=== PATIENT | male | born 1945 | race African-American/Black ===

== ENCOUNTER 2020-04-11 07:47 | Outpatient (CLI) | payer MEDICARE, SELFPAY ==
--- NOTE | ~2020-04-11 | XR_ITS ---
EXAMINATION: XR_ENEMABAC_CR DATE: 04/11/2020 09:15 INDICATION: Polyps. Constipation. TECHNIQUE: A php architect radiograph was obtained. A catheter was inserted into the patient's rectum. Contra st was infused by gravity. Gas was infused by hand pump. 50 fluoroscopic spot images and 17 conventio nal radiographs were obtained. Fluoroscopy exposure time was 3.3 minutes. COMPARISON: None. FINDINGS: There is suboptimal contrast opacification contrast opacification at the cecum due to the tortuosity of the sigmoid and transverse colon. There is a small amount of residual feculent material predominan tly in the ascending colon with few smaller mobile filling defects scattered throughout the more dist al colon. No strictures or mucosal irregularities with normal haustral fold pattern. No masses, defin ite polyps or other nonmobile filling defects appreciated. IMPRESSION: 1. No strictures, mass or definite polyps identified however evaluation is mildly limited by small am ount of residual small bowel feculent material predominantly in the ascending colon where there is al so suboptimal contrast coating of the mucosa due to tortuosity of the sigmoid and transverse colon. Reviewed, dictated and finalized at location A. IMPRESSION: 1. No strictures, mass or definite polyps identified however evaluation is mild ly limited by small amount of residual small bowel feculent material predominan tly in the ascending colon where there is also suboptimal contrast coating of t he mucosa due to tortuosity of the sigmoid and transverse colon.
== END 2020-04-11 07:48 | disposition home or self-care (01) ==
PROVIDERS: PCP Internal Medicine; Visit Provider Internal Medicine Gastroenterology
DX: K59.00 Constipation, unspecified (principal)
CPT/HCPCS: 74280

== ENCOUNTER → 2022-08-12 10:33 | Outpatient (CLI) | payer MEDICARE, SELFPAY ==
--- NOTE | ~2022-08-12 | US_ITS ---
EXAMINATION: US scrotum doppler DATE: 08/12/2022 11:16 INDICATION: Scrotal cyst. TECHNIQUE: Grayscale and Doppler ultrasound images of the testes were obtained. COMPARISON: Ultrasound 06/11/2019 FINDINGS: The right testis measures 4.3 x 1.9 x 3.5 cm. The left testis measures 4.3 x 2.1 x 4.4 cm. There is a 5 mm cyst in left testis. There is normal vascular flow to both testes. The right epididym is is normal with normal vascular flow. The left epididymis is normal with normal vascular flow. Ther e is a 0.7 cm cyst lateral to right testis. There is a 1.2 cm cyst superior to left testis with inter leigha improvement from 3.5 cm on 06/11/19. There is no varicocele or hydrocele. IMPRESSION: 1. Cysts in the scrotum, likely benign. Reviewed, dictated and finalized at location A. 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
== END ==
PROVIDERS: PCP Urology; Visit Provider Urology
DX: L72.9 Follicular cyst of the skin and subcutaneous tissue, unspecified (principal); N50.89 Other specified disorders of the male genital organs
CPT/HCPCS: 76870; 93976

== ENCOUNTER 2024-08-08 10:19 | Outpatient (CLI) | payer MEDICARE, SELFPAY ==
--- NOTE | 2024-08-08 11:00 | NEURO_ITS ---
Impression: # Complains of numbness of lower extremities. # Right posterior tibial polyphasic responses proximally indictive of previous damage. # Otherwise study is within normal limits. # Normal needle/EMG exam. Nerve Conduction Studies Anti Sensory Summary Table Stim Site NR Peak (ms) P-T Amp (?V) Site1 Site2 Delta-P (ms) Dist (cm) Bora (m/s) Left Sup Fibular Anti Sensory (Ant Lat Mall) 14 cm 3.8 19.5 14 cm Ant Lat Mall 3.8 16.0 42 Right Sup Fibular Anti Sensory (Ant Lat Mall) 14 cm 3.4 4.7 14 cm Ant Lat Mall 3.4 16.0 47 Left Sural Anti Sensory (Lat Mall) Calf 3.3 11.4 Calf Lat Mall 3.3 16.0 48 Right Sural Anti Sensory (Lat Mall) Calf 3.4 4.1 Calf Lat Mall 3.4 16.0 47 Motor Summary Table Stim Site NR Onset (ms) O-P Amp (mV) Site1 Site2 Delta-0 (ms) Dist (cm) Bora (m/s) Left Peroneal Motor (Vastus Med) Ankle 3.8 2.7 Popit Ankle 9.1 40.0 44 Popit 12.9 4.1 Right Peroneal Motor (Vastus Med) Ankle 3.6 3.8 Popit Ankle 8.7 41.0 47 Popit 12.3 2.8 Left Tibial Motor (Abd Garcia Brev) Ankle 3.8 0.9 Knee Ankle 8.3 40.0 48 Knee 12.1 0.8 Right Tibial Motor (Abd Garcia Brev) Ankle 3.8 1.4 Knee Ankle 8.6 40.0 47 Knee 12.4 1.6 F Wave Studies NR F-Lat (ms) L-R F-Lat (ms) Left Peroneal (Mrkrs) (EDB) 50.74 1.06 Right Peroneal (Mrkrs) (EDB) 49.69 1.06 Left Tibial (Mrkrs) (Abd Hallucis) 50.53 0.23 Right Tibial (Mrkrs) (Abd Hallucis) 50.29 0.23 EMG Side Muscle Nerve Root Ins Act Fibs Amp Dur Recrt Comment Right AntTibialis Dp Br Fibular L4-5 Nml Nml Nml Nml Nml Right Gastroc Tibial S1-2 Nml Nml Nml Nml Nml Right Fibularis Long Sup Br Fibular L5-S1 Nml Nml Nml Nml Nml Right Flex Dig Long Tibial L5-S2 Nml Nml Nml Nml Nml Right Ext Dig Brev Dp Br Fibular L5, S1 Nml Nml Nml Nml Nml Right QuadratusFem QuadFemoris L4-5, S1 Nml Nml Nml Nml Nml Left AntTibialis Dp Br Fibular L4-5 Nml Nml Nml Nml Nml Left Gastroc Tibial S1-2 Nml Nml Nml Nml Nml Left Fibularis Long Sup Br Fibular L5-S1 Nml Nml Nml Nml Nml Left Flex Dig Long Tibial L5-S2 Nml Nml Nml Nml Nml Left Ext Dig Brev Dp Br Fibular L5, S1 Nml Nml Nml Nml Nml Left QuadratusFem QuadFemoris L4-5, S1 Nml Nml Nml Nml Nml MTDD
== END 2024-08-08 10:20 | disposition home or self-care (01) ==
LOC: ANHNEURO 10:23
PROVIDERS: PCP Internal Medicine; Visit Provider Internal Medicine
DX: R20.0 Anesthesia of skin (principal); R20.2 Paresthesia of skin
CPT/HCPCS: 95886; 95910

== ENCOUNTER 2025-02-12 09:20 | Outpatient (CLI) | payer MEDICARE, SELFPAY ==
--- OUTSIDE RECORDS SUMMARY | 2025-02-12 09:35 | XMS_ITS | Clinical Summary ---
Author Organization [facility] [address] Address [address] [place] [address] Care Team Providers Care Mark Up Designer Name Role Phone Lawson Zhu DO Primary Care Provider [phone] Allergies Active Allergy Reactions Criticality Noted Date Comments Moxifloxacin Anaphylaxis High 07/11/2020 Dorzolamide-Timolol Hallucinations Medium 07/11/2020 Pitavastatin Calcium Anxiety Low 07/11/2020 Medications atorvastatin (LIPITOR) 40 mg tablet Take 1 tablet (40 mg total) by mouth daily Active tamsulosin (FLOMAX) 0.4 mg extended release capsule 1 capsule (0.4 mg total) Active aspirin 325 mg 81 mg Activ e azelastine (ASTELIN) 137 mcg (0.1 %) nasal spray Administer 1 spray into each nostril 2 (two) times a day Use in each nostril as directed 30 mL 3 0 Active Additional Information Patient not taking.Reported on 12/11/2024 latanoprost (XALATAN) 0.005 % ophthalmic solution INSTILL 1 DROP INTO EACH EYE AT BEDTIME DIRECTED 4 Active timolol (TIMOPTIC) 0.5 % ophthalmic solution INSTILL 1 DROP INTO EACH EYE ONCE DAILY 5 Active Active Problems Problem Noted Date Diagnosed Date Benign prostatic hyperplasia 12/11/2024 Constipation 12/11/2024 Elevated blood-pressure read ing without diagnosis of hypertension 12/11/2024 Glaucoma 12/11/2024 Hearing loss 12/11/2024 History of colonic polyps 12/11/2024 Overview (12/11/2024): Mar 17, 2023 Entered By: CAMACHO,KRISTINA R Comment: CSCOPE due 2024. Will obtain repeat in the private sector Hyperlipidemia 12/11/2024 Sensorineural hearing loss, bilateral 12/11/2024 Sinusitis 07/11/2020 Chronic rhinitis 07/11/2020 Encounters Date Type Department Care Team Description 12/12/2024 Results Follow-Up [facility] at [address] [address] Sana Ramsey NP 12/11/2024 3:16 PM CDT - 12/11/2024 11:59 PM CDT Hospital Encounter [address] [address] Paresthesia Discharge Disposition: Discharge to home or self care 12/11/2024 2:15 PM CDT Office Visit [facility] at [address] [address] Sana Ramsey, ROQUE Paresthesia (Primary Dx) from Last 3 Months Surgical History Surgery Date Site/Laterality Comments NOSE SURGERY 10/03/1978 - 10/02/1979 HERNIA REPAIR COLONOSCOPY 10/03/2019 - 10/02/2020 Medical History Medical History Date Comments Allergies Cataracts, bilateral Borderline high serum cholesterol Social History Tobacco Use Types Packs/Day Years Used Date Smoking Tobacco: Unknown Sex and Gender Information Value Date Recorded Sex Assigned at Not on file Legal Sex Male 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 Gender Identity Not on file Sexual Orientation Not on file Obstetrics History Last Filed Vital Signs Vital Sign Reading Time Taken Comments Blood Pressure 119/71 12/11/2024 2:14 PM CDT Pulse 75 12/11/2024 2:14 PM CDT Temperature 36.9 C (98.4 F) 12/11/2024 2:14 PM CDT Respiratory Rate 18 12/11/2024 2:14 PM CDT Oxygen Saturation 96% 12/11/2024 2:14 PM CDT Inhaled Oxygen Concentration - - Weight 63.5 kg (140 lb) 12/11/2024 2:14 PM CDT Height 165.1 cm (5' 5 ) 12/11/2024 2:14 PM CDT Body Mass Index 23.3 12/11/2024 2:14 PM CDT Plan of Treatment Health Maintenance Due Date Last Done Comments Depression Screening 1945 Fall Risk Assessment 1945 Hepatitis C Screening 1945 Hepatitis B Screening 1963 Well Visit 65+ 2010 Pneumococcal vaccine 65+ (2 of 2 - PPSV23) 12/31/2016 01/01/2016, 09/01/2012 Influenza Vaccine (Season Ended) 2025 07/03/2022, 06/09/2020, 07/03/2017, Additional history exists DTaP/Tdap/Td Vaccine (3 - Td or Tdap) 04/23/2031 04/23/2021, 08/09/2008 Zoster Vaccine Completed 07/02/2021, 04/03, 11/07/2012, Additional history exists Procedures Procedure Name Priority Date/Time Associated Diagnosis Comments INFLUENZA A/B, RSV, AND COVID-19 PCR Routine 12/11/2024 3:16 PM CDT Paresthesia from Last 3 Months Results * Influenza A/B, RSV, and COVID-19 PCR Nasopharyngeal (12/11/2024 3:16 PM CDT) COVID-19 RNA Negative Negative Influenza A RNA Negative Negative [facility] Influenza B RNA Negative Negative [facility] RSV RNA Negative Negative [facility] Comment: Interpretive data: Testing performed by [facility]. This test is performed using the [employer] Xpert Xpress CoV-2/Flu/RSV plus assay. This is a multiplex, real-time reverse transcriptase PCR assay intended for the qualitative detection of nucleic acid from SARS-CoV-2, influenza A, influenza B, and respiratory syncytial virus. This assay has been cleared by the [place] Food and Drug administration. The performance characteristics have been verified by the [facility]. Results must be considered in the clinical context, and a negative result does not rule out infection. Interpretive Data last revised 2023 Nasopharyngeal 12/11/2024 3: 16 PM CDT 12/11/2024 9:16 PM CDT Narrative [facility] - 12/11/2024 10:08 PM CDT Is the Patient experiencing symptoms consistent with COVID?->Yes Reason for testing?->Symptomatic Is the patient experiencing any symptoms consistent with COVID (eg. Fever, cough, shortness of breath)?->Yes Sana Ramsey NP LAB MICROBIOLOGY - GENERAL ORDERABLES Final Result [facility] [address] Department [place] [address] from Last 3 Months Insurance [facility]ICARE [facility] MEDICARE Address: [address] [address] [place] [address] [facility] MEDICARE [facility] MEDICARE Care Teams Mark Up Designer Relationship Specialty Start Date End Date Lawson Zhu DO PCP - General Internal Medicine 07/11/20
--- OUTSIDE RECORDS SUMMARY | 2025-02-12 09:35 | XMS_ITS | Referral Summary ---
Author Organization [facility] Address [address] [place] [address] Care Team Providers Care Concert Singer Name Role Phone Lawson Zhu DO Primary Care Provider [phone]- [phone] Encounters Date Type Department Care Team Description 12/12/2024 Results Follow-Up [facility] at [address] [address] Sana Ramsey NP 12/11/2024 3:16 PM CDT - 12/11/2024 11:59 PM CDT Hospital Encounter [address] [place] [phone] Paresthesia Discharge Disposition: Discharge to home or self care 12/11/2024 2:15 PM CDT Office Visit [facility] Care at [address] [address] Sana Ramsey, ROQEU Paresthesia (Primary Dx) from Last 3 Months Allergies Active Allergy Reactions Criticality Noted Date [...] Overview (12/11/2024): Mar 17, 2023 Entered By: KRISTINA CAMACHO Comment: CSCOPE due 2024. 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 Gender Identity Not on file Sexual Orientation Not on file Last Filed Vital Signs Vital Sign Reading [...] 12/11/2024 2:14 PM CDT Plan of Treatment Not on file Procedures Procedure Name Priority Date/Time Associated Diagnosis Comments INFLUENZA A/B, RSV, AND COVID-19 PCR Routine 12/11/2024 3:16 PM CDT Paresthesia from Last 3 Months Results * Influenza A/B, RSV, and COVID-19 PCR Nasopharyngeal (12/11/2024 3:16 PM CDT) COVID-19 RNA Negative Negative Influenza A RNA Negative Negative [facility] Influenza B RNA Negative Negative [facility] RSV RNA Negative Negative [facility] Comment: Interpretive data: Testing performed by Laboratory. This test is performed using the meevl Xpert Xpress CoV-2/Flu/RSV plus assay. This is a multiplex, real-time reverse transcriptase PCR assay intended for the qualitative detection of nucleic acid from SARS-CoV-2, influenza A, influenza B, and respiratory syncytial virus. This assay has been cleared by the [place] Food and Drug administration. The performance characteristics have been verified by the Laboratory. Results must be considered in the clinical context, and a negative result does not rule out infection. Interpretive Data last revised 2023 Nasopharyngeal 12/11/2024 3: 16 PM CDT 12/11/2024 9:16 PM CDT Narrative [facility] - 12/11/2024 10:08 PM CDT Is the Patient experiencing symptoms consistent with COVID?->Yes Reason for testing?->Symptomatic Is the patient experiencing any symptoms consistent with COVID (eg. Fever, cough, shortness of breath)?->Yes Sana Ramsey NP LAB MICROBIOLOGY - GENERAL ORDERABLES Final Result [facility] [id number] Department of Laboratories [place], [place] [phone] from Last 3 Months Insurance [facility] MEDICARE ADVANTAGE AET MEDICARE [facility] MEDICARE Care Teams Concert Singer Relationship Specialty Start Date End Date Lawson Zhu DO PCP - General Internal Medicine 07/11/20
--- OUTSIDE RECORDS SUMMARY | 2025-02-12 09:35 | XMS_ITS ---
Author Organization [facility] Address [address] [place], [place] [address] Care Team Providers Care Auto Research Engineer Name Role Phone JERICA BECERRIL Unavailable [phone] Lawson Zhu Unavailable REASON FOR VISIT MEDICAL RECORDS Encounters Encounter Location Date Provider Diagnosis [facility] [address] [place], [place] [id number] 12/10/2024 JERICA BECERRIL Plan Of Treatment No Information Progress Notes * OMER BETODOB: 5 (79 yo M)Acc No.[id number]:12/10/2024 Patient: BETO HENDERSON :1945 A ge:79 Y S ex:Male Address:[address], [place] [address] * true * Date: Generated for Jaquani ng/Fapareshg/eTransmitting on: 0 02/12/2025 09:34 AM CDT
--- OUTSIDE RECORDS SUMMARY | 2025-02-12 09:35 | XMS_ITS | Continuity of Care Document ---
Author Organization [facility] Address [address] U[address] [place] [address] Phone Care Team Providers Care Ammunition Assembly I Laborer Name Role Phone Jonathan Carrera Unavailable Unavailable [...] Diagnoses Date Provider Providers Copied on Encounter [facility], [address], [place], [place], [address], [place] tel:[phone] [facility] No Information Oct-2 0-201 0 Doisy Edward. [address] [facility] , [address], [place], [place], [facility], [place]. tel:[phone] Referring Provider: Ricky Nation, [address] [place], [address]. tel:[phone] [facility], [address], [place], [place], [address], [place] tel:[phone] [facility] No Information Oct-1 2-201 0 Doisy Edward. [address] [facility] , [address], [place], [facility], [place]. tel:[phone] Referring Provider: Ricky Nation, [address] [place], [place], [facility]. tel:[phone] Office/outpat ient Visit, [facility], [address], [place], [place], [address], [place] tel:[phone] [facility] No Information Oct-0 6-201 0 Doisy Edward. [address] [facility] , [address], [place], [address], [place]. tel:[phone] Referring Provider: Ricky Nation, [address] [place], [address]. tel:[phone] [facility], [address], [place], [place], [address], [place] tel:[phone] [facility] No Information Sep-2 1-201 0 Doisy Edward. [address] [facility] , [address], [place], [facility], [place]. tel:[phone] Referring Provider: Ricky Nation, [address] [place], [address]. tel:[phone] [facility], [address], [place], [place], [address], [place] tel:[phone] [facility] No Information Sep-1 0-201 0 Deandre Edradha. [address] , [address], [place], [facility], . tel:[phone] Referring Provider: Jonathan Candelaria, [address], [place], [facility]. tel:[phone] Office/outpat ient Visit, [facility], [address], [place], [place], [address], [place] tel:[phone] [place] [address] No Information Jan-2 9-201 0 Deandre Castillo. [address] [facility] [address], [address], [place], [facility], [place]. tel:[phone] Referring Provider: Ricky Nation, [address] [place], [address]. tel:[phone] Office/outpat ient Visit, [facility], [address], [place], [place], [address], [place] tel:[phone] [facility] No Information Dec-1 0-200 9 Deandre Castillo. [facility] [address], [address], [place], [facility], [place]. tel:[phone] Referring Provider: Jonathan Candelaria, [address], [place], [facility]. tel:[phone] [facility], [address], [place], [place], [address], [place] tel:[phone] [facility] No Information Apr-3 1-200 9 Deandre Edradha. [address], [address], [place], [facility], [place]. tel:[phone] Referring Provider: Jonathan Candelaria, [address], [place], [address]. tel:[phone] Office/outpat ient Visit, [facility], [address], [place], [place], [address], [place] tel:[phone] [facility] No Information 9 Deandre Castillo. [address], [place], [address], [place]. tel:[phone] Referring Provider: Ricky Nation, [address] [place], [address]. tel:[phone] Office/outpat ient Visit, [facility], [address], [place], [place], [address], [place] tel:[phone] [facility] No Information 200 8 Deandre Castillo. [address] , [address], [place], [address], [place]. tel:[phone] Referring Provider: Rciky Nation, [address] [place], [address]. tel:[phone] Office/outpat ient Visit, [facility], [address], [place], [place], [address], [place] tel:[phone] [facility] No Information 1200 8 Deandre Castillo. [address] , [address], [place], [address], [place]. tel:[phone] Referring Provider: Ricky Nation, [address] [place], [address]. tel:[phone] [facility], [address], [place], [place], [address], [place] tel:[phone] [facility] No Information 8 Deandre Edradha. [address] , [address], [place] [facility], [place]. tel:[phone] Referring Provider: Jonathan Candelaria, [address], [place] [facility]. tel:[phone] Office/outpat ient Visit, [facility], [address] [place] [address] [address], [place], [place], [address], tel:[phone] [facility] No Information 200 8 Deandre Castillo. [address] [facility] , [address], [place] [facility], [place]. tel:[phone] Referring Provider: Ricky Nation, [address] [place], [address]. tel:[phone] [facility], [address] [place] [address] [address], [place], [place], [address], [place] tel:[phone] [facility] No Information 200 7 Deandre Castillo. [address] [facility] , [address], [place] [facility], [place]. tel:[phone] Referring Provider: Ricky Nation, [address] [place], [address]. tel:[phone] [facility], [address] [place] [address] [address], [place], [place], [address], [place] tel:[phone] [facility] No Information 8[address] Deandre Castillo. [address] [facility] , [address], [place] [facility], [place]. tel:[phone] Referring Provider: Ricky Nation, [address] [place], [address]. tel:[phone] [facility], [address] [place] [address] [address], [place], [place], [address], tel:[phone] [facility] No Information 200 7 Doisy Edward. [address] [facility] , [address], [place] [facility], . tel:[phone] Referring Provider: Ricky Nation, [address] [place], [address]. tel:[phone] [facility], [address] [place] [address] [address], [place], [place], [address], [place] tel:[phone] [facility] No Information [address] Doisy Edward. [address] [facility] , [address], [place], [facility], [place]. tel:[phone] Referring Provider: Paulo Harrison, [address] [place] [address], [address]. tel:[phone] [facility], [address] [place] [address] [address], [place], [place], [address], tel:[phone] [facility] No Information 7 Doisy Edward. [address] [facility] , [address], [place] [facility], [place]. tel:[phone] Referring Provider: Paulo Harrison, [address] [place], [address]. tel:[phone] [facility], [address], [place], [place], [address], [place] tel:[phone] [facility] No Information 7 Doisy Edward. [address] [facility] , [address], [place], [facility], [place]. tel:[phone] Referring Provider: Paulo Harrison, [address] [place], [address]. tel:[phone] [facility], [address], [place], [place], [address], [place] tel:[phone] [facility] No Information 2-200 7 Nathalieca Castillo. [address] , [address], [place], [address], [place]. tel:[phone] Referring Provider: Paulo Harrison, [address] [place] [address], [address]. tel:[phone] Family History Family Member Type Diagnosis Age At Onset No Information Payers Payer name Insurance type Covered republican ID Authoriza tion(s) No Information Social History [...]
--- OUTSIDE RECORDS SUMMARY | 2025-02-12 09:35 | XMS_ITS | Patient Health Record ---
Author Organization [facility] Address [address] [place], [place] [address] Care Team Providers Care Rescue Worker Name Role Phone JERICA BECERRIL Unavailable [phone] Lawson Zhu Unavailable Unavailable Allergies Allergen (clinical drug ingredient) Drug/Non Drug Allergy documented on EMR Reaction Allergy Type Onset Date Status diphenhydramine Antihistamine Unknown Drug Allergy Active moxifloxacin Avelox Unknown Drug Allergy Acti ve dorzolamide Dorzolamide Unknown Drug Allergy Act lu Latex Latex Unknown Allergy Active Reason For Referral No Information Medications Medication SIG (Take, Route, Fr equency, Duration) Notes Start Date End Date Status Aspirin Active Atorvastatin Calcium Active Tamsulosin HCl Activ e Latanoprost Active Vital Signs Height-cm 165.1 cm 05/24/2024 7.5 Weight-kg 65.77 kg 05/24/2024 7.5 Height 65 in 05/24/2024 7.5 Weight 145 lbs 05/24/2024 7.5 BMI 24.13 kg/m2 05/24/2024 7.5 Encounters Encounter Location Date Provider Diagnosis [facility] [address] [place], [place] [id number] 05/24/2024 JERICA BECERRIL Metatarsalgia of right foot M77.41 ; Other hereditary and idiopathic neuropathies G60.8 ; Flat foot [pes planus] (acquired), right foot M21.41 ; Flat foot [pes planus] (acquired), left foot M21.42 and Pain in right foot M79.671 [facility] [address] [email or web address] [address] [place], [place] [id number] 05/28/2024 JERICA BECERRIL [facility] [address] [facility] [[email or web address] [address] [place], [place] [id number] 08/14/2024 JERICA BECERRIL [facility] [place] [address] [facility] [[email or web address] [address] [place], [place] [id number] 12/10/2024 JERICA BECERRIL Assessments Encounter Date Diagnosis (ICD Code) Assessment Notes Treatment Notes Treatment Clinical Notes Section Notes 05/24/2024 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 We will wait to see if his symproms worsen. Orthotic Powerstep: Powerstep OTC orthotics were dispensed. Plan Of Treatment No Information Insurance Providers Payer Name Payer Address Payer Phone Subscriber Number Group Number Insured Name Patient Relationship to Insured Coverage Start Date Coverage End Date [employer] [address] [place] [phone] [id number] BETO TELLO Self - patient is the insured Medical (General) History Medical History History ICD Code Leg/Feet cramps Gout low blood pressure hypertension restless leg syndrome Surgical History Surgery Date(Month/Year) Hernia Cataract extration
--- OUTSIDE RECORDS SUMMARY | 2025-02-12 09:35 | XMS_ITS ---
Author Organization [facility] Address [address] [place], [place] [address] Care Team Providers Care Stone Driller Helper Name Role Phone JERICA BECERRIL Unavailable [phone] Lawson Zhu Unavailable Unavailable Encounters Encounter Location Date Provider Diagnosis [facility] [address] [place], [place] [id number] 08/14/2024 JERICA BECERRIL Plan Of Treatment No Information Progress Notes * BETO TELLODOB: 5 (79 yo M)Acc No.[id number]:08/14/2024 Patient: BETO HENDERSON :1945 A ge:79 Y S ex:Male Address:[facility], [place] [address] * true * Date: Generated for Jaquani maris/Gela/eTransmitting on: 0 02/12/2025 09:34 AM CDT
--- OUTSIDE RECORDS SUMMARY | 2025-02-12 09:35 | XMS_ITS | Encounter Summary ---
Author Organization [facility] Address [address] [place] [address] Care Team Providers Care Senior Mechanical Design Engineer Name Role Phone Lawson Zhu DO Primary Care Provider [phone]- [phone] Encounter Details Date Type Department Care Team (Late st Contact Info) Description 12/12/2024 Results Follow-Up [facility] Convenient Care at [address] [place] [place] [address] Sana Ramsey, FABRIC AWNING REPAIRER [address] [place] [address] [address] [place] [address] Social History Tobacco Use Types Packs/Day Years Used Date Smoking Tobacco: Unknown Sex and Gender Information Value Date Recorded Sex Assigned at Not on file Legal Sex Male 8:10 PM MEDICAL COST CONSULTANT Gender Identity Not on file Sexual Orientation Not on file documented as of this encounter Miscellaneous Notes * Result Encounter Note - Mary Cherry LPN - 12/19/2024 4:31 PM CDT Notified pt of their results and follow up instructions. Pt verbalized understanding. * Result Encounter Note - Mary Cherry LPN - 12/12/2024 2:06 PM CDT Notified pt of their results and follow up instructions. Pt verbalized understanding. documented in this encounter Plan of Treatment Not on file documented as of this encounter Visit Diagnoses Not on filedocumented in this encounter Care Teams Senior Mechanical Design Engineer Relationship Specialty Start Date End Date Lawson Zhu DO PCP - General Internal Medicine 07/11/20 documented as of this encounter
--- OUTSIDE RECORDS SUMMARY | 2025-02-12 09:35 | XMS_ITS ---
Author Organization [facility] Address [address] [place], [place] [id number] Care Team Providers Care Blasting Contract Man Name Role Phone JERICA BECERRIL Unavailable [phone] Lawson Zhu Unavailable Unavailable Encounters Encounter Location Date Provider Diagnosis [facility] [address] [place], [place] [id number] 05/28/2024 JERICA BECERRIL Plan Of Treatment No Information Progress Notes * BETO TELLODOB: 5 (79 yo M)Acc No.[id number]:05/28/2024 Patient: BETO HENDERSON :1945 A ge:79 Y S ex:Male Address:[facility], [place] [address] * true * Date: Generated for Jaquani maris/Gela/eTransmitting on: 0 02/12/2025 09:34 AM CDT
--- NOTE | 2025-02-12 09:41 | ECG_ITS ---
Test Date: 2025-02-12 09:53:25 Measurements Intervals [place] Rate: 67 P: 61 RI: 150 QRS: 52 QRSD: 90 T: 63 QT: 400 QTc: 423 Interpretive Statements SINUS RHYTHM WITH SINUS ARRHYTHMIA NONSPECIFIC T-WAVE ABNORMALITY WARNING: DATA QUALITY MAY AFFECT INTERPRETATION No previous ECG available for comparison Electronically Signed On 02-12-2025 15:00:53 CDT by Aminata Cunningham M.D.
== END 2025-02-12 09:21 | disposition home or self-care (01) ==
LOC: ANHSURGERY 09:23
PROVIDERS: PCP Internal Medicine; Visit Provider Surgery
DX: Z01.818 Encounter for other preprocedural examination (principal); I49.8 Other specified cardiac arrhythmias; R94.39 Abnormal result of other cardiovascular function study; E78.5 Hyperlipidemia, unspecified; K40.90 Unilateral inguinal hernia, without obstruction or gangrene, not specified as recurrent; K42.9 Umbilical hernia without obstruction or gangrene
CPT/HCPCS: 36415; 86850; 86900; 86901; 93005

== ENCOUNTER 2025-02-18 01:02 | Day surgery (SDC) | payer MEDICARE, SELFPAY ==
[2025-02-06 09:56] VITALS: BMI 23.1
--- NOTE | 2025-02-06 10:14 | PC.NURSE ---
Report to the Outpatient Waiting Room, entrance under the green pavilion located off [facility], at time ___8:30am____ on date ___02/18/25____. Planned Procedure Time: ___10:30am . Time changes happen often and if your time is changed the preop area will call you the afternoon before. - You and your visitor will be asked to self-screen and do not enter if you have any COVID symptoms. Please call surgeon if you need to reschedule. - A mask is optional within the hospital at this time. Patients may have clear liquids (water, carbonated beverages, clear teas, apple juice) until 3 hours prior to surgery (7:30AM) with a maximum of 20 ounces. - No food from midnight until time of surgery and no smoking, or chewing tobacco (or any form of nicotine). No chewing gum, candy or mints. Take only the following medications with a SIP of water on the morning of surgery: NONE DO NOT STOP ANY OF YOUR OTHER PRESCRIPTION MEDICATIONS PRIOR TO SURGERY EXCEPT THE FOLLOWING Hold all vitamins and supplements for 3 days per anesthesiologist- LAST DOSE 02/14/25. Please no make-up, nail turkish, hairspray, perfume, deodorant, or body powder the day of surgery. No jewelry (including any body piercings) or valuables the day of surgery, leave them at home. Please take a shower or bath the night before, or the morning of, surgery with an antibacterial soap. Wear comfortable, loose fitting clothing. - Jewelry must be removed prior to entering the operating room. Rings and piercings that are not removed may be cut off. - The hospital will not accept responsibility for valuables. - Please leave all valuables, including medications, at home the day of surgery. If you are going home after surgery, a licensed hazmat cdl a driver must drive you home. - NO public transportation without another adult if you receive anesthesia. - We recommend that an adult stay with you for 24 hours following discharge. - We also recommend that you do not drive, make important decision, drink alcoholic beverages, or take any drugs that were not prescribed by your health care provider for at least 24 hours after your discharge time. Follow any additional instructions given to you from your surgeon. Telephone instructions given to ___PATIENT and asked if any additional questions and then verbalized understanding. Patient advised to call surgeon office or pre surgery nurse liaison [phone] if any additional questions.
--- NOTE | 2025-02-15 15:32 | WPDANESEPPF ---
Anes - Initial Pre Proc Eval Procedure: Operation Date: 02/18/25 10:30 Proposed Procedures p Robotic Assisted Laparoscopic Right Inguinal Hernia Repair with Mesh, - Paulino Moore MD s Open Umbilical Hernia Repair - Paulino Moore MD Date/Time: 02/15/25 15:32 Surgeon: Paulino Moore MD Pre Op Diagnosis: reducible right inguinal and umbilical hernia Patient Data Age: 79 Gender: M Height: 1.68 m Weight: 65 kg Allergies Allergy/AdvReac Type Severity Reaction Status Date / Time moxifloxacin (From Avelox) AdvReac Severe REFUSES Verified 02/06/25 09:49 FOR FEAR OF Anaphylaxis/NEVER TAKEN dorzolamide AdvReac Mild HALLUCINATI Verified 02/06/25 09:49 ONS pitavastatin AdvReac Mild WALKING Verified 02/06/25 09:49 IN SLOW MOTION Home Medications Medication Instructions Recorded Confirmed Type aspirin 81 mg tablet,delayed 81 mg PO DAILY 10/17/19 02/06/25 History release (Adult Aspirin Regimen) latanoprost 0.005 % eye drops 1 drop ophthalmic (eye) DAILY 10/17/19 02/06/25 History polyethylene glycol 3350 17 17 gm PO DAILY 10/17/19 02/06/25 History gram/dose oral powder (Miralax) vit C 250 mg-vit E 90 mg-zinc 40 1 tablet PO BID 10/17/19 02/06/25 History mg-copper 1 nc-eclnro-lwczru capsule (PreserVision AREDS-2) multivitamin-ferrous 1 tablet PO DAILY 04/19/24 02/06/25 History fumarate-folic acid 18 mg-400 mcg tablet (Centrum) atorvastatin 40 mg tablet See Rx Instructions .Route 10/15/24 02/06/25 Rx .COMPLEX #90 tabs tamsulosin 0.4 mg capsule See Rx Instructions .Route 12/10/24 02/06/25 Rx .COMPLEX #90 caps propylene glycol 0.6 % eye drops 1 drp EACH EYE Q6-8H PRN dry eye(s) 02/05/25 02/06/25 History (Systane Balance) Patient hx anesthesia problems: none Family hx anesthesia problems: none Results Review: All pre-operative results and documents have been reviewed as part of the pre-operative evaluation. [facility] Past Medical History Medical History (Updated 02/05/25 @ 09:21 by Jodi Hall) Allergies Hyperlipidemia, unspecified History of fracture Mumps BPH (benign prostatic hyperplasia) Cataract Hyperlipidemia due to dietary fat intake Surgical History Surgical History (Updated 02/05/25 @ 08:48 by Ruth Peña MA) Hx of eye surgery 2022 H/O rhinoplasty 1978 H/O cataract removal with insertion of prosthetic lens 2007 H/O hernia repair 2016 Family History Family History (Updated 02/05/25 @ 08:49 by Ruth Peña MA) Mother Family history of eczema, Onset Age: 105 Family history of allergic disorder, Onset Age: 105 Family history of Alzheimer's disease, Onset Age: 105 Asthma Hypertension Father Hay fever Aneurysm Sibling Asthma Other Family history of kidney disease Social History Social History (Updated 02/05/25 @ 08:50 by Ruth Peña MA) Smoking status: Never smoker Smoking end date: 10/03/74 Alcohol intake: never Substance use: never Substance use type: does not use Do You Feel Safe in your Home?: Yes Lack of Transportation: No Lack of Food: Never True Current Housing: I Have Housing Concerned About Future Housing: No Difficulty Paying Gas/Electric Bills: No Difficulty Paying for Meds: No Currently Unemployed: Decline to Answer Education: High School Diploma/GED Difficulty w/ Childcare or Family Care: No Living arrangements: with family Additional living arrangements comments: Spiritual care concerns: No Agree to blood products: Yes Anes - Eval Final PreProcedure Day of Procedure 02/15/25 15:32 Patient weight: normal Heart: regular rate and rhythm Lungs: clear to auscultation Airway: Mallampati scale class II Neurological: alert and oriented Last oral intake: >/= 8 hours ASA classification: III Emergent: no Anesthetic plan: proceed Anesthesia type and monitoring: general ETT and standard monitoring Results Review: All pre-operative results and documents have been reviewed as part of the pre-operative evaluation. Informed Consent: The patient's anesthetic plan and its attendant risks and benefits were discussed with the patient/family/POA. Questions were solicited and answers provided to the satisfaction of the patient/family/POA.
[2025-02-18] VITALS (10 sets, daily range): BP systolic 117–156; BP diastolic 56–70; PULSE 64–94; RESP 9–18; TEMP 35.9–37; O2SAT 93–99
--- OUTSIDE RECORDS SUMMARY | 2025-02-18 01:06 | XMS_ITS | Patient Health Record ---
Author Organization [facility] Address [address] [place], [place] [id number] Care Team Providers Care Freight Hustler Name Role Phone JERICA BECERRIL Unavailable [phone] Lawson Zhu Unavailable Unavailable Allergies Allergen (clinical [...] Location Date Provider Diagnosis [facility] [address] [place], [place] [id number] 05/24/2024 JERICA BECERRIL Metatarsalgia of right foot M77.41 ; Other hereditary and idiopathic neuropathies G60.8 ; Flat foot [pes planus] (acquired), right foot M21.41 ; Flat foot [pes planus] (acquired), left foot M21.42 and Pain in right foot M79.671 [facility] [address] [facility] [address] [place], [place] [id number] 05/28/2024 JERICA BECERRIL [facility] [address] [facility] [address] [place], [place] [id number] 08/14/2024 JERICA BECERRIL [facility] [place] [address] [facility] [address] [place], [place] [id number] 12/10/2024 JERICA BECERRIL Assessments Encounter Date Diagnosis [...] Date Coverage End Date [employer] [address] [place] [phone] [id number] BETO TELLO Self - patient is the insured Medical (General) History Medical History History ICD Code Leg/Feet cramps Gout low blood pressure hypertension restless leg syndrome Surgical History Surgery Date(Month/Year) Hernia Cataract extration
--- OUTSIDE RECORDS SUMMARY | 2025-02-18 01:06 | XMS_ITS | Clinical Summary ---
Author Organization [facility] Address [address] [place] [address] Care Team Providers Care General Repair Mechanic Name Role Phone Lawson Zhu DO Primary Care Provider [phone]- [phone] Allergies Active Allergy Reactions Criticality Noted Date [...] Department Care Team Description 12/12/2024 Results Follow-Up [facility] Convenient Care at [address] [address] Sana Ramsey, ROQUE Influenza A/B, RSV, and COVID-19 PCR Nasopharyngeal 12/11/2024 3:16 PM CDT - 12/11/2024 11:59 PM [place] [address] Paresthesia Discharge Disposition: Discharge to home or self care 12/11/2024 2:15 PM CDT Office Visit [facility] Convenient Care at [address] [address] Sana Ramsey, ROQUE Paresthesia (Primary Dx) from [...] on file Legal Sex Male 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 This test is performed using the [employer] Xpert Xpress CoV-2/Flu/RSV plus assay. This is a multiplex, real-time reverse transcriptase PCR assay intended for the qualitative detection of nucleic acid from SARS-CoV-2, influenza A, influenza B, and respiratory syncytial virus. This assay has been cleared by the [place] Food and Drug administration. The performance characteristics have been verified by the [facility]. Results must be considered in the clinical context, and a negative result does not rule out infection. Interpretive Data last revised 2023 Nasopharyngeal 12/11/2024 3: 16 PM CDT 12/11/2024 9:16 PM CDT Narrative [facility] - 12/11/2024 10:08 PM CDT Is the Patient experiencing symptoms consistent with COVID?->Yes Reason for testing?->Symptomatic Is the patient experiencing any symptoms consistent with COVID (eg. Fever, cough, shortness of breath)?->Yes Sana Ramsey NP LAB MICROBIOLOGY - GENERAL ORDERABLES Final Result [facility] [address] Department [place] [address] from Last 3 Months Insurance [facility] MEDICARE ADVANTAGE [facility] Address: [address] [place] [address] [facility] MEDICARE Care Teams General Repair Mechanic Relationship Specialty Start Date End Date Lawson Zhu DO PCP - General Internal Medicine 07/11/20
--- OUTSIDE RECORDS SUMMARY | 2025-02-18 01:06 | XMS_ITS | Referral Summary ---
Author Organization [facility] Address [address] [place] [address] Care Team Providers Care Economist Research Assistant Name Role Phone Lawson Zhu DO Primary Care Provider [phone]- [phone] Encounters Date Type Department Care Team Description 12/12/2024 Results Follow-Up [facility] Medical Group Convenient Care at [address] [address] Sana Ramsey, ROQUE Influenza A/B, RSV, and COVID-19 PCR Nasopharyngeal 12/11/2024 3:16 PM CDT - 12/11/2024 11:59 PM CDT Hospital Encounter [address] [id number] Paresthesia Discharge Disposition: Discharge to home or self care 12/11/2024 2:15 PM CDT Office Visit [facility] Medical [facility] Care at [address] [address] Sana Ramsey, [employer] DRIVER Paresthesia (Primary Dx) from Last 3 Months [...] on file 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 This test is performed using the [employer] Xpert Xpress CoV-2/Flu/RSV plus assay. This is a multiplex, real-time reverse transcriptase PCR assay intended for the qualitative detection of nucleic acid from SARS-CoV-2, influenza A, influenza B, and respiratory syncytial virus. This assay has been cleared by the [place] Food and Drug administration. The performance characteristics have been verified by the [facility]. Results must be considered in the clinical context, and a negative result does not rule out infection. Interpretive Data last revised 2023 Nasopharyngeal 12/11/2024 3: 16 PM CDT 12/11/2024 9:16 PM CDT Narrative [facility] 12/11/2024 10:08 PM CDT Is the Patient experiencing symptoms consistent with COVID?->Yes Reason for testing?->Symptomatic Is the patient experiencing any symptoms consistent with COVID (eg. Fever, cough, shortness of breath)?->Yes Sana Ramsey NP LAB MICROBIOLOGY - GENERAL ORDERABLES Final Result [facility] [address] Department [place] [address] from Last 3 Months Insurance [facility] MEDICARE ADVANTAGE T MEDICARE [facility] MEDICARE Care Teams Economist Research Assistant Relationship Specialty Start Date End Date Lawson Zhu DO PCP - General Internal Medicine 07/11/20
[2025-02-18] MEDS: LACTATED RINGERS 1,000 ML 30 ML IV CONT ×3 (09:30→16:04)
[2025-02-18] MEDS: KETOROLAC 15 MG/ML VIAL (*BKC) IV PUSH ×2 (09:30→14:11)
[2025-02-18] MEDS: ACETAMINOPHEN 500 MG TABLET 1000 MG PO (09:30)
--- NOTE | 2025-02-18 11:05 | WPDHPUPDATE1 ---
History and Physical Update Update Date/Time: 02/18/25 11:05 History and Physical has been reviewed, including an updated exam of the patient. There are NO changes in the patient's condition. Risks, benefits, and alternatives have been discussed and questions answered. Patient agrees to proceed with procedure.
[2025-02-18] MEDS: ceFAZolin 2 GM/D5W 50 ML 2 GM/50 ML BAG IVPB (11:51)
[2025-02-18] MEDS: LIDO 1%/EPINEPHRINE 1:100,000 50 ML VIAL 30 ML INFILTRATE (12:34)
[2025-02-18] MEDS: BUPivacaine HCL 0.5% 10 ML AMP 30 ML INFILTRATE (12:35)
--- NOTE | 2025-02-18 23:17 | W.PM.PROC2 ---
Procedure Note - Detailed Date of Procedure 02/18/25 Pre-op Diagnosis Reducible right inguinal and reducible umbilical hernia Post-op Diagnosis Same Procedure Performed Robotic assisted laparoscopic right inguinal hernia repair with Bard 3D mid weight mesh. Open umbilical hernia repair without mesh Surgeon Paulino Moore MD Auto Parts Handler Lowell Weinstein, HORTICULTURAL SERVICES SUPERVISOR Anesthesia General Indications Patient is a 79-year-old gentleman who I had repaired a left inguinal hernia repair on with the mesh in an open fashion her about 8 years ago. He has no complaints with regards to his left groin region. He does have a new bulge in the right groin region was some minor soreness. On exam he appears to have reducible right inguinal hernia as well as a small reducible umbilical hernia. He presents now for repair of both of these via robotic assisted laparoscopic approach with inguinal hernia and open approach without mesh for the umbilical hernia. Findings The patient had a large indirect right inguinal hernia containing large amount of retroperitoneal fat and cord lipoma. Visualization of the left groin region showed no evidence of recurrent left inguinal hernia and good position of the prior placed mesh. He also had a small umbilical hernia with preperitoneal fat within it with a defect measuring about 1.5cm. Description of Procedure After informed consent was obtained patient was brought to the operating room was placed supine position and general endotracheal anesthesia was administered. The abdomen and bilateral groin region were then prepped and draped usual sterile fashion. A time-out was then performed correctly identifying the patient as well as procedure to be performed. He was given perioperative IV antibiotics. Site marking was verified. I started by placing a 5mm Optiview port in the left upper quadrant under direct visualization. Once inside the abdomen I insufflated the abdomen until I achieved pneumoperitoneum [id number]. Then proceeded to place additional 8mm robotic trocar ports across the mid abdomen. With the Grabiel robot was brought to the patient's bedside and docked and then the robotic arms were attached robotic ports. Robotic instruments were advanced into the abdomen without difficulty under direct visualization. I then scrubbed out the procedure sent down at the robotic console to perform the dissection robotically. I 1st started by taking down a few full filmy adhesions to the peritoneum of the cecum. This done without damaging cecum. I then made a transverse preperitoneal flap across the lower right side of the abdomen extending all the way down into the pelvis. Once I entered the preperitoneal plane I then identified the inferior epigastric vessels and dissected these free away from the peritoneal flap. Medially I dissected all the way down to the pubic tubercle and then down into the space of Retzius for couple cm. I dissected out the pubic symphysis and just oversew the left side. I then proceeded to dissect the peritoneum off of the area of the internal ring. I then started to robotically reduce the contents of the right indirect inguinal hernia. There was a large amount of retroperitoneal fat was extended down into the inguinal canal. There was also large hernia sac which extended in that area as well. I was able to dissect out fatty tissue of the inguinal canal with electrocautery. The vas deferens and testicular vessels were identified and preserved without injury. I dissected the retroperitoneal fat up onto the psoas muscle and the peritoneum all the way back to the psoas muscle. I then measured my space then I figured a [id number] extra-large piece of Bard 3D mesh would fit in the dissected space. It was just introduced into the abdomen through a bedside learning and development assistant trocar port site and then the mesh oriented for the right groin region was then placed in the dissected space. It covered the pubic tubercle medially and the lower portion of mesh extended down into the space of Retzius. The remaining part of the mesh was covering the internal ring as well as the direct space and the femoral space. I then secured the mesh to the tissues around the pubic tubercle utilizing interrupted 2-0 Vicryl sutures. Laterally the mesh was secured to the muscle edges of the right lower quadrant abdominal wall. A suture was then also placed to approximate the mesh to the transversalis fascia in the area the direct space. The mesh laid out very nicely without any tension. I then pulled up the peritoneal flap at the proximal portion of mesh did not roll up pulling up the flap. The flap was then closed utilizing a running 2-0 absorbable V lock suture. A small hole in the hernia sac was then closed utilizing a running 2-0 Vicryl suture. At this point I inspected the bowel all appeared to be normal on. I then removed all the trocar ports under direct visualization all port sites appeared hemostatic. I then allowed the abdomen decompressed. The 8mm trocar port which was just above the umbilicus was then closed utilizing a 0 Vicryl suture. The 10mm left upper quadrant trocar port was closed utilizing 0 Vicryl suture. I then proceeded to repair the small reducible umbilical hernia. A curved incision was made in the upper portion of the umbilical fold scalpel dissection carried down deeply through the dermis skin with a scalpel. A small hernia sac was encountered it was opened to reveal small amount of preperitoneal fat. This fat was viable. I then resected this portion of the preperitoneal fat. Identified the edges of the fascia and the defect was approximately 1.5cm in diameter. I then proceeded to close the defect primarily utilizing multiple interrupted 0 Ethibond sutures. The defect closed very nicely without any tension. I then irrigated out the port sites sterile saline solution hemostasis was good to. I then injected 1% lidocaine mixed with 0.5% Marcaine in 50 50 mixture injected these around the port sites and umbilical hernia repair for local anesthetic effect. I then closed all the port sites at the skin level utilizing a running subcuticular 4-0 Monocryl suture. The umbilical incision was closed with a running subcuticular 4-0 Monocryl suture as well. The patient tolerated the procedure well no complications. All sponges, needles, and instrument counts were correct at the end procedure. EBL was 20__cc. The patient was awakened and taken to recovery in stable and satisfactory condition. Implants Ethe right side.large piece of Bard 3D mid weight mesh measuring [id number] oriented for the right groin region. Estimated Blood Loss 20 Drains No Packing No Pathology None sent Complications No immediate complications Disposition PACU [facility] Billing Surgery - Charge Forward: Surgery Billing
== END 2025-02-18 17:24 | disposition home or self-care (01) ==
PROVIDERS: PCP Internal Medicine; Visit Provider Surgery
PROC: 8E0Y4CZ Robotic Assisted Procedure of Lower Extremity, Percutaneous Endoscopic Approach (ICD-10-PCS; CPT 49650; principal; 2025-02-18 10:30)
PROC: (CPT 49650; 2025-02-18 10:30)
DX: K40.90 Unilateral inguinal hernia, without obstruction or gangrene, not specified as recurrent (principal); K42.9 Umbilical hernia without obstruction or gangrene; D17.6 Benign lipomatous neoplasm of spermatic cord; E78.5 Hyperlipidemia, unspecified; N40.0 Benign prostatic hyperplasia without lower urinary tract symptoms; Z79.82 Long term (current) use of aspirin; Z98.890 Other specified postprocedural states
CPT/HCPCS: 49650; 49591; S2900; A9270; C1781; J0690; J1885; J2003; J2004; J2405; J2704; J3010; J7120

== ENCOUNTER 2025-05-28 06:45 | Outpatient (CLI) | payer MEDICARE, SELFPAY ==
--- NOTE | ~2025-05-28 | MR_ITS ---
EXAMINATION: MR lumbar spine wo harmony, 05/28/2025 7:00 CDT HISTORY: G62.9 - Polyneuropathy, unspecified COMPARISON: None TECHNIQUE: Multi-planar multi-sequence images were obtained of the lumbar spine without contrast per protocol. FINDINGS: Moderate loss of vertical height throughout. Grade 1 anterolisthesis L4 on L5, no acute fracture is identified. Marrow signal is appropriate with scattered areas of subcentimeter hemangioma formation. Posterior alignment is intact. No abnormal signal within the posterior elements Conus terminates at T12-L1, there is no abnormal signal within the cord Moderate to severe loss of disc height most marked at T12-L1 and L4-5 grade disc desiccation and moderate to severe endplate degenerative changes The soft tissues demonstrate bilateral partially imaged probable renal cysts the largest left kidney 3 x 3 cm L5-S1: Circumferential bulging of the disc with ligamentum flavum and facet hypertrophy. Moderate to severe bilateral foraminal and lateral recess stenosis. No canal stenosis. L4-5: Circumferential bulging of the disc with ligamentum flavum and facet hypertrophy. Severe bilateral foraminal, lateral recess and canal stenosis. L3-4: Circumferential bulging of the disc ligamentum flavum and facet hypertrophy. Moderate bilateral foraminal, lateral recess and mild canal stenosis. L2-L3: Circumferential bulging of the disc. Mild bilateral foraminal stenosis. L1-L2: Circumferential bulging of the disc with mild bilateral foramina stenosis. T12-L1: Circumferential bulging of the disc with moderate to severe bilateral foraminal stenosis. Moderate lateral recess stenosis. Mild canal stenosis. IMPRESSION: Degenerative changes detailed above Reviewed, dictated and finalized at location A.
== END 2025-05-28 06:46 | disposition home or self-care (01) ==
PROVIDERS: PCP Internal Medicine; Visit Provider Psychiatry & Neurology Neurology
DX: M51.379 Other intervertebral disc degeneration, lumbosacral region without mention of lumbar back pain or lower extremity pain (principal); M51.35 Other intervertebral disc degeneration, thoracolumbar region; M48.07 Spinal stenosis, lumbosacral region; M48.05 Spinal stenosis, thoracolumbar region
CPT/HCPCS: 72148

== ENCOUNTER 2025-07-04 09:10 | Outpatient (CLI) | payer MEDICARE, SELFPAY ==
--- OUTSIDE RECORDS SUMMARY | 2010-07-22 07:45 | XMS_ITS | Continuity of Care Document ---
Author Organization [facility] Address [address] Umaña [address] [place] [phone] Phone Care Team Providers Care Technology Analyst Name Role Phone Jonathan Carrera Unavailable Unavailable Procedures Procedure Date Post-op Follow-up Visit Laser Surgery Of Eye Office/outpatient Visit, Est Optic Nerve Head Eval IPO Reduced 15% Visual Field Examination-Professional Se Visual Field Examination(s) Office/outpatient Visit, Est Office/outpatient Visit, Est Fundus Photography W/ Report Visual Field Examination(s) Office/outpatient Visit, Est Office/outpatient Visit, Est Fundus Photography W/ Report Office/outpatient Visit, Est Visual Field Examination(s) Office/outpatient Visit, Est Post-op Follow-up Visit Post-op Follow-up Visit Remove Cataract, Insert Lens Post-op Follow-up Visit Echo Exam Of Eye-Professional 7 Post-op Follow-up Visit Remove Cataract, Insert Lens Eye Exam, New Patient Echo Exam Of Eye Advance Directives Directive Yes / No Effective Date File Name No Information Encounters Encounter Description Practice Location Reason(s) For Visit Diagnoses Date Provider Providers Copied on Encounter [facility], [address], [place], [place], [id number], [place] tel:[phone] [facility] No Information Oct-2 0-201 0 Doisy Edward. [address] , [address], [place], [place], [facility], [place]. tel:[phone] Referring Provider: Ricky Nation, [address] [place], [address]. tel:[phone] [facility], [address], [place], [place], [id number], [place] tel:[phone] [facility] No Information Oct-1 2-201 0 Doisy Edward. [address] [address] , [address], [place], [place], [facility], [place]. tel:[phone] Referring Provider: Ricky Nation, [address] [place], [place], [facility]. tel:[phone] Office/outpat ient Visit, [facility], [address], [place], [place], [address], [place] tel:[phone] [facility] No Information Oct-0 6-201 0 Doisy Edward. [address] [facility] [address] [address] , [address], [place], [address], [place]. tel:[phone] Referring Provider: Ricky Nation, [address] [place], [address]. tel:[phone] [facility], [address], [place], [place], [id number], [place] tel:[phone] [facility] No Information Sep-2 1-201 0 Doisy Edward. [address] [facility] [address] , [address], [place], [facility], [place]. tel:[phone] Referring Provider: Ricky Nation, [address] [place], [address]. tel:[phone] [facility], [address], [place], [place], [address], [place] tel:[phone] [facility] No Information Sep-1 0-201 0 Deandre Edradha. [address] , [address], [place], [facility], . tel:[phone] Referring Provider: Jonathan Candelaria, [address], [place], [facility]. tel:[phone] Office/outpat ient Visit, [facility], [address], [place], [place], [id number], [place] tel:[phone] [place] [address] No Information Jan-2 9-201 0 Deandre Castillo. [address] [facility] [address], [address], [place], [facility], [place]. tel:[phone] Referring Provider: Ricky Nation, [address] [place], [address]. tel:[phone] Office/outpat ient Visit, [facility], [address], [place], [place], [address], [place] tel:[phone] [facility] No Information Dec-1 0-200 9 [facility]re [facility]. [facility] [address], [address], [place], [facility], [place]. tel:[phone] Referring Provider: Jonathan Candelaria, [address], [place], [facility]. tel:[phone] [facility], [address], [place], [place], [address], [place] tel:[phone] [facility] No Information Apr-3 1-200 9 Deandre Edradha. [address], [address], [place], [facility], [place]. tel:[phone] Referring Provider: Jonathan Candelaria, [address], [place], [address]. tel:[phone] Office/outpat ient Visit, [facility], [address], [place], [place], [address], [place] tel:[phone] [facility] No Information 9 Deandre Castillo. [address], [address], [place], [address], [place]. tel:[phone] Referring Provider: Ricky Nation, [address] [place], [address]. tel:[phone] Office/outpat ient Visit, [facility], [address], [place], [place], [address], [place] tel:[phone] [facility] No Information 200 8 Deandre Castillo. [address] , [address], [place], [address], [place]. tel:[phone] Referring Provider: Ricky Nation, [address] [place], [address]. tel:[phone] Office/outpat ient Visit, [facility], [address], [place], [place], [address], [place] tel:[phone] [facility] No Information 1200 8 Deandre Castillo. [address] , [address], [place], [address], [place]. tel:[phone] Referring Provider: Ricky Nation, [address] [place], [address]. tel:[phone] [facility], [address], [place], [place], [address], [place] tel:[phone] [facility] No Information 8 Deandre Edradha. [address] , [address], [place], [facility], [place]. tel:[phone] Referring Provider: Jonathan Candelaria, [address], [place], [facility]. tel:[phone] Office/outpat ient Visit, [facility], [address] [place] [address] [address], [place], [place], [address], tel:[phone] [facility] No Information 200 8 Deandre Castillo. [address] [facility] [address] , [address], [place], [facility], [place]. tel:[phone] Referring Provider: Ricky Nation, [address] [place], [address]. tel:[phone] [facility], [address] [place] [address] [address], [place], [place], [address], [place] tel:[phone] [facility] No Information 200 7 Deandre Castillo. [address] [address] [address] , [address], [place], [facility], [place]. tel:[phone] Referring Provider: Ricky Nation, [address] [place], [address]. tel:[phone] [facility], [address] [place] [address] [address], [place], [place], [address], [place] tel:[phone] [facility] No Information 8200 7 Deandre Castillo. [address] [facility] [address] , [address], [place], [facility], [place]. tel:[phone] Referring Provider: Ricky Nation, [address] [place], [address]. tel:[phone] [facility], [address] [place] [address] [address], [place], [place], [address], tel:[phone] [facility] No Information 200 7 Doisy Edward. [address] [address] [address] , [address], [place], [facility], . tel:[phone] Referring Provider: Ricky Nation, [address] [place], [address]. tel:[phone] [facility], [address] [place] [address] [address], [place], [place], [address], [place] tel:[phone] [facility] No Information 200 7 Doisy Edward. [address] [facility] [address] , [address], [place], [facility], [place]. tel:[phone] Referring Provider: Paulo Harrison, [address] [place] [address], [address]. tel:[phone] [facility], [address] [place] [address] [address], [place], [place], [address], tel:[phone] [facility] No Information 7 Doisy Edward. [address] [facility] [address] , [address], [place], [facility], [place]. tel:[phone] Referring Provider: Paulo Harrison, [address] [place], [address]. tel:[phone] [facility], [address], [place], [place], [address], [place] tel:[phone] [facility] No Information 7 Doisy Edward. [address] [facility] [address] , [address], [place], [facility], [place]. tel:[phone] Referring Provider: Paulo Harrison, [address] [place], [address]. tel:[phone] [facility], [address], [place], [place], [address], [place] tel:[phone] [facility] No Information 2-200 7 Nathalieca Castillo. [address] , [address], [place], [address], [place]. tel:[phone] Referring Provider: Paulo Harrison, [address] [place] [address], [address]. tel:[phone] Family History Family Member Type Diagnosis Age At Onset No Information Payers Payer name Insurance type Covered green party ID Authoriza tion(s) No Information Social History Type Description Quantity Date Captured Comments Sex Male Smoking Status No Information Chief Complaint And Reason For Visit No Information Reason For Referral Reason For Referral No Information History Of Present Illness Encounter Date Complaint History Of Prese nt Illness No Information Functional Status Date Functional Assessmen t No Information Instructions Date Instruction Additional Infor mation No Information Assessments Type Assessment Date No Information Patient Care Teams Name Effective Dates (start - stop) Status Members No Information
--- OUTSIDE RECORDS SUMMARY | 2025-07-04 09:40 | XMS_ITS | Clinical Summary ---
Author Organization [facility] Address [facility] [place] [address] Care Team Providers Care Family Specialist Name Role Phone Lawson Zhu DO Primary Care Provider [phone] Allergies Active Allergy Reactions Criticality Noted Date [...] bilateral 12/11/2024 Sinusitis 07/11/2020 Chronic rhinitis 07/11/2020 Surgical History Surgery Date Site/Laterality Comments NOSE SURGERY 10/03/1978 - 10/02/1979 HERNIA REPAIR COLONOSCOPY 10/03/2019 - 10/02/2020 Medical History Medical History Date Comments Allergies Cataracts, bilateral Borderline high serum cholesterol Social History Tobacco Use Types Packs/Day Years Used Date Smoking Tobacco: Unknown Sex and Gender Information Value Date Recorded Sex Assigned at Not on file Legal Sex Male 8:10 PM [employer] Gender Identity Not on file Sexual Orientation [...] 2:14 PM CDT Height 165.1 cm (5' 5) 12/11/2024 2:14 PM CDT Body Mass Index 23.3 12/11/2024 2:14 PM CDT Plan of Treatment Health Maintenance Due Date Last Done Comments Depression Screening 1945 Fall Risk Assessment 1945 Hepatitis B Screening 1963 Well Visit 65+ 2010 Pneumococcal vaccine 65+ (2 of 2 - PCV20 or PCV21) 12/31/2016 01/01/2016, 09/01/2012 Influenza Vaccine (#1) 2025 2, 06/09/2020, 07/03/2017, Additional history exists DTaP/Tdap/Td Vaccine (3 - Td or Tdap) 04/23/2031 04/23/2021, 08/09/2008 Zoster Vaccine Completed 07/02/2021, 04/03, 11/07/2012, Additional history exists Insurance [employer]HC MEDICARE ADVANTAGE FORMERLY [facility], [facility] MEDICARE FORMERLY [facility], [facility] MEDICARE Care Teams Family Specialist Relationship Specialty Start Date End Date Lawson Zhu DO PCP - General Internal Medicine 07/11/20
--- OUTSIDE RECORDS SUMMARY | 2025-07-04 09:40 | XMS_ITS | Patient Health Record ---
Author Organization [facility] Address [address] [place], [place] [id number] Care Team Providers Care Dining Room Host/Hostess Name Role Phone JERICA BECERRIL Unavailable [phone] Lawson Zhu Unavailable Unavailable Allergies Allergen (clinical [...] Active Tamsulosin HCl Activ e Latanoprost Active Encounters Encounter Location Date Provider Diagnosis [facility] [address] [place], [place] [id number] 08/14/2024 JERICA BECERRIL [facility] [address] [place], [place] [id number] 12/10/2024 JERICA BECERRIL Plan Of Treatment No Information Insurance Providers Payer Name Payer Address Payer Phone Subscriber Number Group Number Insured Name Patient Relationship to Insured Coverage Start Date Coverage End Date [employer] [address] JENNIE CORETZ [phone] [id number] BETO TELLO Self - patient is the insured Medical (General) History Medical History History ICD Code Leg/Feet cramps Gout low blood pressure hypertension restless leg syndrome Surgical History Surgery Date(Month/Year) Hernia Cataract extration
--- NOTE | 2025-07-04 10:00 | NEURO_ITS ---
Clinical note: Patient 80 years old with history of paresthesias in both feet left more than right side and lower back pain. No history of diabetes mellitus. a brief neurological examination did not reveal any significant focal motor weakness or fasciculations at this time. Please refer to the includes EMG nerve can study findings. Summary of findings 1. Left and right peroneal motor distal latencies and amplitudes and conduction velocity within normal limits. There is no focal slowing across the fibular head. 2. Left and right tibial motor distal latencies and conduction velocity normal limits however amplitudes were moderately decreased. 3. Left and right sural sensory distal latencies are normal however amplitude was mildly decreased on the left and normal right side. Bilateral medial plantar and left lateral plantar sensory were absent wears right lateral plantar distal latency amplitude within normal limits. 4. Left and right tibial H reflex latency were within normal limits however amplitudes marked decrease in white and normal on the left side. 5. EMG examination performed wears various muscles examined both lower limbs as well as related paraspinal muscles. Mild to moderate decreased recruitment was noted in both abductor hallucis and left medial gastrocnemius and right biceps femoris short head and right anterior tibial muscle. Impression: EMG nerve can study of both lower limbs shows findings as follows 1. Mild, predominantly sensory, length-dependent, axonal type peripheral neuropathy. Etiologic correlation is recommended. 2. There is no supportive evidence for L3 to S1 radiculopathy however, mild decreased recruitment was noted in some of the muscles in L5-S1 distribution raising possibility of chronic L5-S1 radiculopathy. Hence clinical and if necessary radiographic correlation may be helpful. There is no evidence of myopathy. Remainder of the findings are considered within acceptable normal limits. Deangelo Weber MD, FAAN, FAANEM Neurology and electrodiagnostic Medicine Nerve Conduction Studies Motor Nerve Results ? Latency Amplitude F-Lat Segment Distance CV Comment Site (ms) (mV) (ms) (cm) (m/s) Left Peroneal (EDB) Motor Ankle 4.1 4.3 Bel Fib Head 11.0 3.2 Bel Fib Head-Ankle 300 43 Pop Fossa 12.7 2.9 Pop Fossa-Bel Fib Head 70 41 Right Peroneal (EDB) Motor Ankle 4.3 3.2 Bel Fib Head 10.7 2.9 Bel Fib Head-Ankle 280 44 Pop Fossa 12.5 2.8 Pop Fossa-Bel Fib Head 80 44 Left Tibial (AHB) Motor Ankle 4.9 3.3 Knee 14.1 3.1 Knee-Ankle 410 45 Right Tibial (AHB) Motor Ankle 3.7 3.1 Knee 13.8 2.6 Knee-Ankle 400 40 Sensory Nerve Results ? Latency (Peak) Amplitude (P-P) Segment Distance CV Comment Site (ms) (?V) (cm) (m/s) Left Lateral Plantar (Ortho) Sensory Small Toe-Med Mall NR NR Small Toe-Med Mall 100 NR Right Lateral Plantar (Ortho) Sensory Small Toe-Med Mall 2.8 9 Small Toe-Med Mall 110 39 Left Medial Plantar (Ortho) Sensory Great Toe-Med Mall NR NR Great Toe-Med Mall 100 NR Right Medial Plantar (Ortho) Sensory Great Toe-Med Mall NR NR Great Toe-Med Mall - NR Left Sural Sensory Calf-Lat Mall 3.4 7 Calf-Lat Mall 120 35 Right Sural Sensory Calf-Lat Mall 3.6 11 Calf-Lat Mall 120 33 H-Reflex Results ? M-Lat H Lat H Peak-Peak Amp M Peak-Peak Amp H-M Lat Site (ms) (ms) mV mV (ms) Left Tibial H-Reflex Pop Fossa - 33.6 4.1 - - Right Tibial H-Reflex Pop Fossa 5.1 33.3 0.39 0.23 28.2 Electromyography ?Side Muscle Nerve Ins Act Fibs Psw Amp Dur Recrt Comment Right AbdHallucis MedPlantar Nml Nml Nml Nml >12ms +2 Left AbdHallucis MedPlantar Nml Nml Nml Nml >12ms +1 Left AntTibialis Dp Br Fibular Nml Nml Nml Nml Nml Nml Right AntTibialis Dp Br Fibular Nml Nml Nml Incr >12ms +1 Left BicepsFemS Sciatic Nml Nml Nml Nml Nml Nml Right BicepsFemS Sciatic Nml Nml Nml Incr >12ms +1 Left Gastroc Tibial Nml Nml Nml Incr Nml +1 Right Gastroc Tibial Nml Nml Nml Nml Nml Nml Left GluteusMax InfGluteal Nml Nml Nml Nml Nml Nml Right GluteusMax InfGluteal Nml Nml Nml Nml Nml Nml Left L4 Parasp Rami Nml Nml Nml Nml Nml Nml Right L4 Parasp Rami Nml Nml Nml Nml Nml Nml Left L5 Parasp Rami Nml Nml Nml Nml Nml Nml Right L5 Parasp Rami Nml Nml Nml Nml Nml Nml Left RectFemoris Femoral Nml Nml Nml Nml Nml Nml Right RectFemoris Femoral Nml Nml Nml Nml Nml Nml Left Semimembranosus Sciatic Nml Nml Nml Nml Nml Nml Right Semimembranosus Sciatic Nml Nml Nml Nml Nml Nml Right TensorFascLat SupGluteal Nml Nml Nml Nml Nml Nml Left TensorFascLat SupGluteal Nml Nml Nml Nml Nml Nml Right VastusMed Femoral Nml Nml Nml Nml Nml Nml Left VastusMed Femoral Nml Nml Nml Nml Nml Nml
== END 2025-07-04 09:11 | disposition home or self-care (01) ==
PROVIDERS: PCP Internal Medicine; Visit Provider Psychiatry & Neurology Neurology
DX: G62.9 Polyneuropathy, unspecified (principal); R20.0 Anesthesia of skin; R20.2 Paresthesia of skin
CPT/HCPCS: 95886; 95910